=== PATIENT | female | born 1955 | race Two or more races ===

== ENCOUNTER 2018-09-16 14:10 | Emergency (ER) | payer MEDICAID ==
[~2018-09-16] VITALS: Ht 154.9 cm; Wt 67.6 kg
--- NOTE | 2018-09-16 14:27 | NUR ---
pt brought in from work for glf with c/c of right hip pain pt accompanied by daughter
[2018-09-16] MEDS ORDERED: MORPHINE SULFATE INJ 2 MG/ML DISP.SYRIN IM ONE (15:00)
[2018-09-16] MEDS ORDERED: ONDANSETRON HCL/PF - ER 4 MG/2 ML VIAL IV ONE (15:00)
[2018-09-16] MEDS ORDERED: MORPHINE SULFATE INJ 4 MG/ML DISP.SYRIN ONE (15:11)
[2018-09-16] MEDS ORDERED: ONDANSETRON HCL/PF 4 MG/2 ML VIAL ONE (15:12)
[2018-09-16] MEDS ORDERED: MORPHINE SULFATE INJ 2 MG/ML DISP.SYRIN IV ONE (15:30)
--- NOTE | 2018-09-16 16:23 | NUR ---
[facility] CALL[facility]. 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 AWAITING THE CALL
[2018-09-16 16:35] VITALS: BP 126/60
--- NOTE | 2018-09-16 17:10 | NUR ---
[facility] CALLED BACK TO INFORM THAT WE NEED TO SPEAK TO [facility]. WILL CALL [facility] AT [phone]
--- NOTE | 2018-09-16 17:15 | NUR ---
[facility] CALLED. 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 WYNN
--- NOTE | 2018-09-16 19:22 | NUR ---
IV removed. Catheter intact and site benign. Pressure and 4x4 applied to site. No bleeding noted.Patient discharged to home in stable condition. Written and verbal after care instructions given. Patient verbalizes understanding of instruction. PT AMBULATORY WITH STEADY GAIT ACCOMPANIED BY FAMILY.
== END 2018-09-16 19:48 | disposition home or self-care (01) ==
LOC: ER 14:13
DX: S32.018A Other fracture of first lumbar vertebra, initial encounter for closed fracture (principal); S32.028A Other fracture of second lumbar vertebra, initial encounter for closed fracture; S32.038A Other fracture of third lumbar vertebra, initial encounter for closed fracture; I10 Essential (primary) hypertension; E11.9 Type 2 diabetes mellitus without complications; Z98.890 Other specified postprocedural states; W01.0XXA Fall on same level from slipping, tripping and stumbling without subsequent striking against object, initial encounter; Y93.01 Activity, walking, marching and hiking; Y92.89 Other specified places as the place of occurrence of the external cause; Y99.8 Other external cause status
CPT/HCPCS: 72131; 73502; 96374; 96375; 99284; A4606; J2270; J2405